=== PATIENT | female | born 1955 | race Caucasian/White ===

== ENCOUNTER 2020-12-18 21:52 | Emergency (ER) | payer MEDICARE, OTHER, SELFPAY ==
[2020-12-18 22:52] VITALS: BP 176/78; PULSE 88; RESP 16; TEMP 36.8; O2SAT 95; BMI 31.1
[2020-12-18 23:01] VITALS: BP 139/77; PULSE 72
--- NOTE | 2020-12-18 23:03 | CT_ITS ---
PROCEDURE INFORMATION: Exam: CT Abdomen And Pelvis With Contrast Exam date and time: 12/18/2020 11:03 PM Age: 65 years old Clinical indication: Other: Open area below umbilicus suprapubic in PT skin with drainage; Patient HX: Opening below umbilicus with drainage no recent sugery or trauma; Additional info: Abscess to mid abd TECHNIQUE: Imaging protocol: Computed tomography of the abdomen and pelvis with contrast. Radiation optimization: All CT scans at this facility use at least one of these dose optimization techniques: automated exposure control; mA and/or kV adjustment per patient size (includes targeted exams where dose is matched to clinical indication); or iterative reconstruction. Contrast material: ISOVUE; Contrast volume: 75 ml; Contrast route: IV; COMPARISON: No relevant prior studies available. FINDINGS: Liver: Normal. No mass. Gallbladder and bile ducts: Normal. No calcified stones. No ductal dilation. Pancreas: Normal. No ductal dilation. Spleen: Normal. No splenomegaly. Adrenal glands: Normal. No mass. Kidneys and ureters: Normal. No hydronephrosis. Stomach and bowel: Constipation. No colitis. No small bowel obstruction. Appendix: Appendix not seen but no secondary signs of appendicitis. Intraperitoneal space: Unremarkable. No free air. No significant fluid collection. Vasculature: Unremarkable. No abdominal aortic aneurysm. Lymph nodes: Unremarkable. No enlarged lymph nodes. Urinary bladder: Unremarkable as visualized. Reproductive: Hysterectomy. Bones/joints: Unremarkable. No acute fracture. Soft tissues: Unremarkable. IMPRESSION: No acute findings. No abscess in the soft tissues.
--- NOTE | 2020-12-18 23:29 | PC.NURSE ---
Spoke with [facility] and got the Loading dose of Vancomycin.
[2020-12-18 23:40] LABS: Basophils # 0.1 K/mm3 (0-0.2); Basophils % 0.8 % (0.1-2.0); Eosinophils # 0.1 K/mm3 (0.0-0.4); Eosinophils % 1.6 % (0.1-12.0); Hemoglobin 13.6 g/dL (12.2-16.2); Lymphocytes # 4.2 K/mm3 (0.7-4.5); Lymphocytes % 48.6 % (10-50); Mean Corpuscular HGB Conc 32.4 g/dL (31.8-35.4); Mean Corpuscular Hemoglobin 28.8 pg (27.0-31.2); Mean Corpuscular Volume 89.1 fl (81-99); Mean Platelet Volume 7.2 fl (7.4-10.4); Monocytes # 0.6 K/mm3 (0.1-1.0); Monocytes % 6.5 % (1.7-9.3); Neutrophils # 3.6 K/mm3 (1.8-7.8); Neutrophils % 42.4 % (37.0-80.0); Platelet Count 289 K/mm3 (142-424); Red Blood Count 4.72 M/mm3 (4.20-5.40); Red Cell Distribution Width 13.7 % (11.5-17.5); White Blood Count 8.6 K/mm3 (4.8-10.8)
[2020-12-18 23:47] LABS: Alanine Aminotransferase 29 U/L (12-78); Albumin Level 4.3 g/dl (3.5-5.0); Albumin/Globulin Ratio 1.6 (1.1-1.8); Alkaline Phosphatase 84 U/L (38-126); Anion Gap 10.1 mEq/L (5-15); Aspartate Amino Transferase 27 U/L (14-36); Bilirubin,Total 0.4 mg/dl (0.2-1.3); Blood Urea Nitrogen 21 mg/dl (7-17); Calcium 9.7 mg/dl (8.4-10.2); Carbon Dioxide 26 mmol/L (22.0-30.0); Chloride 107 mmol/L (98-107); Creatinine Clearance Estimated 65 mL/min (50-200); Estimated Glomerular Filt Rate 83 ml/min (>60); GFR (African American) 101 ML/MIN (>60); Globulin 2.7 g/dL (1.3-3.2); Glucose 114 mg/dl (74-100); Lactic Acid 1.3 mmol/L (0.7-2.1); Potassium 4.1 mmoL/L (3.5-5.1); Sodium 139 mmol/L (136-145)
[2020-12-18 23:52] LABS: C-Reactive Protein 1.6 mg/L (0-4)
--- NOTE | 2020-12-19 00:03 | HMH.EDSKAF ---
ED Disposition Clinical Impression: Abscess of skin or subcutaneous tissue Qualifiers: Site of cutaneous abscess: trunk Site of cutaneous abscess of trunk: abdominal wall Qualified Code(s): L02.211 - Cutaneous abscess of abdominal wall Disposition: Home, Self-Care Condition on Discharge: Good Instructions: DI for Skin Abscess Additional Instructions: keep clean daily and use meds as directed and culture pending Prescriptions: cephALEXin [cephALEXin 500mg capsule*] 500 mg PO TID #30 cap Prescription Printed clindamycin HCL [Clindamycin HCl] 300 mg PO TID #30 cap Prescription Printed Referrals: Provider,Referral, [Primary Care Provider] - - Critical Care Critical Care Time: No Attestation: On 12/18/20, the high probability of a clinically significant, sudden or life threatening deterioration of the following system(s) required my full and direct attention, intervention and personal management. The time I documented below is in addition to time spent performing reported procedures but includes the following listed in this critical care notation. Medical Decision Making - Medical Records Medical records reviewed: Yes: I reviewed the patient's medical records. - Kvng Inquiry Pt receiving controlled substance: No Vital Signs: 12/18/20 22:52 12/18/20 23:01 Temperature 98.2 F Temperature Source Oral Pulse Rate 72 Pulse Rate [Right] 88 Respiratory Rate 16 Blood Pressure 139/77 Blood Pressure [Right Arm] 176/78 H Blood Pressure Mean [Right Arm] 110 Blood Pressure Source Automatic Cuff Blood Pressure Source [Right Arm] Automatic Cuff Blood Pressure Position Supine Blood Pressure Position [Right Arm] Supine 02 Sat by Pulse Oximetry 95 Oxygen Delivery Method Room Air - Lab Data Lab results reviewed: Yes: I reviewed the patient's lab results. Lab Results 12/18/20 23:20: WBC 8.6, RBC 4.72, Hgb 13.6, Hct 42.0, MCV 89.1, MCH 28.8, MCHC 32.4, RDW 13.7, Plt Count 289, MPV 7.2 L, Neut % (Auto) 42.4, Lymph % (Auto) 48.6, [place] % (Auto) 6.5, Eos % (Auto) 1.6, Baso % (Auto) 0.8, Neut # (Auto) 3.6, Lymph # (Auto) 4.2, [place] # (Auto) 0.6, Eos # (Auto) 0.1, Baso # (Auto) 0.1, ESR 17 12/18/20 23:20: Sodium 139, Potassium 4.1, Chloride 107, Carbon Dioxide 26, Anion Gap 10.1, BUN 21 H, Creatinine 0.70, Estimated Creat Clear 65, Estimated GFR 83, Est GFR ( Amer) 101, Glucose 114 H, Calcium 9.7, Total Bilirubin 0.4, AST 27, ALT 29, Alkaline Phosphatase 84, C-Reactive Protein 1.6, Total Protein 7.0, Albumin 4.3, Globulin 2.7, Albumin/Globulin Ratio 1.6, Procalcitonin 0.051 12/18/20 23:20: Lactate 1.3 Result diagrams: 12/18/20 23:20 12/18/20 23:20 Orders (Tests/Meds): ED MEDICATIONS Generic Name Dose Route Start Last Admin Trade Name Freq PRN Reason Stop Dose Admin Sodium Chloride 1,000 mls @ 999 mls/hr 12/18/20 23:15 12/18/20 23:34 Sod Chlor 0.9% 1000ml Bag IV 12/19/20 00:15 999 mls/hr .Q1H1M CARLOS Administration Vancomycin HCl 1,000 mg/ 250 mls @ 125 mls/hr 12/18/20 23:31 12/18/20 23:35 Sodium Chloride IV 12/19/20 01:30 125 mls/hr ONCE ONE Administration Protocol ORDERS Category Date Time Status Wound Culture and Gram Stain Stat Micro 12/18/20 22:50 Results - CT Data CT Scan: Abdomen, Pelvis Time Received: 01:[address] Reviewed: Yes: I have viewed the radiologist's interpretation Preliminary Findings: Normal/NAD (no abscess) Medical Decision Narrative: no abscess with stable labs will treat as outpt Skin/Abscess/FB HPI - General Chief complaint: Skin/Abscess/Foreign Body Stated complaint: irritated wound on stomach Time Seen by Provider: 12/18/20 23:20 Mode of Arrival: Ambulatory Source of Information: Patient, Relative, Medical Record Limitations: No Limitations Description of Symptoms (Recalled from ER Triage Doc. by RN): Pt states she has noticed an itch in the fold of her abd skin for a few days, about 2 days ago she reports an odor and t
[2020-12-19 00:06] LABS: Procalcitonin 0.051 ng/mL (0.0-2.0)
[2020-12-19 00:55] LABS: Erythrocyte Sedimentation Rate 17 mm/hr (0-30)
[2020-12-19 02:15] VITALS: BP 129/72; PULSE 74; RESP 16; TEMP 36.8; O2SAT 99
== END 2020-12-19 02:16 | disposition home or self-care (01) ==
PROVIDERS: Emergency Provider Emergency Medicine
DX: L02.211 Cutaneous abscess of abdominal wall (principal)
CPT/HCPCS: 74177; 80053; 83605; 84145; 85025; 85651; 86140; 87070; 87077; 87186; 87205; 96365; 96366; 96367; 99283; J3370